=== PATIENT | female | born 1940 | race Caucasian/White ===

== ENCOUNTER → 2016-11-27 | Outpatient (CLI) | payer MEDICARE, BC ==
--- NOTE | 2016-12-01 11:15 | RSPPFT ---
DATE OF PROCEDURE: 11/27/16 COMMENTS: VOLUMES DYNAMIC: FVC and FEV1 normal. STATIC: TLC and RV normal; VTG mildly reduced. FLOWS : FEV1% and FEF 25-75 normal. DIFFUSION; Normal. FLOW VOLUME LOOP: Normal configuration. IMPRESSION: Essentially normal pulmonary functions with the exception of a slight reduction in the VTG probably due to a BMI of 40. No significant obstruction, normal diffusion and no improvement post-bronchodilator noted.
== END ==
LOC: HRSP 10:20
PROVIDERS: ATTEND Internal Medicine
DX: J44.9 Chronic obstructive pulmonary disease, unspecified (principal); J45.909 Unspecified asthma, uncomplicated
CPT/HCPCS: 94060; 94620; 94726; 94729; 95012